=== PATIENT | male | born 1990 | race African-American/Black ===

== ENCOUNTER 2024-09-26 14:19 | Emergency (ER) | payer MEDICAID ==
[~2024-09-26] VITALS: Ht 182.9 cm; Wt 98.0 kg
[2024-09-26 14:55] VITALS: O2SAT 100
[2024-09-26 15:13] VITALS: TEMP 37.3; O2SAT 100
[2024-09-26 16:01] LABS: HEMATOCRIT. 42.2 % (42.0-52.0); HEMOGLOBIN. 14.2 g/dL (14.0-18.0); MEAN PLATELET VOLUME 7.8 fl (7.4-10.4); PLATELET 269 x1000/uL (130-400); RED BLOOD CELL COUNT 4.53 mill/uL (4.7-6.1); RED CELL DISTRIBUTION WIDTH 14.2 % (11.6-14.6)
[2024-09-26] MEDS: MORPHINE SULFATE 4 MG/ML INJ (FOR IV/IM USE) IV ONE ×2 (16:01→18:12)
[2024-09-26] MEDS: ONDANSETRON HCL 4MG/2ML INJ IV ONE (16:01)
[2024-09-26] MEDS: LACTATED RINGERS 1,000 ML IV SCH ×2 (16:03)
[2024-09-26 16:14] LABS: CREATININE 1.1 mg/dL (0.6-1.3); UREA NITROGEN BLOOD 17 mg/dL (9-23)
[2024-09-26 16:16] LABS: ASPARTATE AMINOTRANSFERASE 15 IU/L (<34); BILIRUBIN TOTAL 0.7 mg/dL (0.1-1.0); PROTEIN TOTAL 7.1 g/dL (6.0-8.3)
[2024-09-26 16:20] LABS: LYMPHOCYTES % MANUAL 3.0 % (20.0-50.0); MONOCYTES % MANUAL 2.0 % (2.0-8.0); NEUTROPHILS % MANUAL 95.0 % (45.0-75.0); PLATELET ESTIMATE NORMAL
[2024-09-26] MEDS: HALOPERIDOL LACTATE 5MG/ML VIAL IM ONE (16:33)
[2024-09-26 18:12] VITALS: BP 126/73; PULSE 50; RESP 13
[2024-09-26] MEDS: KETOROLAC 15MG/ML VIAL IV ONE (18:12)
[2024-09-26] MEDS: MAGNESIUM/ALUMINUM HYDROXIDE/SIMETHICONE 30ML UDC PO ONE (18:12)
[2024-09-26] MEDS ORDERED: HYDR-4001 MT (18:41)
[2024-09-26] MEDS ORDERED: IBUP-2029 MT (18:41)
[2024-09-26] MEDS ORDERED: CAPS42.514 TP (18:41)
[2024-09-26] MEDS ORDERED: ONDA-239 PO (18:41)
== END 2024-09-26 19:38 | disposition home or self-care (01) ==
LOC: ER 14:19
DX: R10.9 Unspecified abdominal pain (principal); R11.10 Vomiting, unspecified; Z79.899 Other long term (current) drug therapy
CPT/HCPCS: 80053; 83690; 85025; 36415; 93005; 96361; 96372; 96374; 96375; 96376; 99284; J1630; J1885; J2405; J2270; Z7610